=== PATIENT | male | born 2000 | race Caucasian/White ===

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

== ENCOUNTER 2024-03-16 23:35 | Emergency (ER) | payer SELFPAY ==
[2024-03-16 23:39] VITALS: BP 120/67; PULSE 99; RESP 20; TEMP 97.7; BMI 22.6
== END 2024-03-17 00:27 | disposition home or self-care (01) ==
LOC: JER 23:35
DX: L25.5 Unspecified contact dermatitis due to plants, except food (principal); L29.9 Pruritus, unspecified; R21 Rash and other nonspecific skin eruption
CPT/HCPCS: 99283-25